=== PATIENT | female | born 2000 | race Hispanic/Latino ===

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

== ENCOUNTER 2022-12-07 13:30 | Emergency (ER) | payer OTHER ==
[2022-12-07] MEDS ORDERED: Lactated Ringer's 1,000 ML ONE (14:03)
[2022-12-07 14:36] LABS: Bilirubin Negative (Negative); Blood, Urine Negative (Negative); Clarity Clear (Clear); Glucose, Urine (Dipstick) Negative (Negative); Ketone, Urine Negative (Negative); Leukocyte Trace (Negative); Nitrite Negative (Negative); Protein, Urine (Dipstick) Negative (Neg-Trace); Urobilinogen 0.2 mg/dL (Less than 2)
[2022-12-07 14:38] LABS: #Basophils 0.1 thou/uL (0.0-0.2); #Eosinphils 0.1 thou/uL (0.0-0.7); #Lymphocytes 1.9 thou/uL (1.20-3.40); #Monocytes 0.6 thou/uL (0.11-0.59); #Neutrophils 7.8 thou/uL (1.40-6.50); %Basophils 0.7 % (0.0-1.0); %Eosinophils 0.8 % (0.0-10.0); %Lymphocytes 18.1 % (28.0-48.0); %Monocytes 5.8 % (0.0-4.0); %Neutrophils 74.6 % (31.0-61.0); Hematocrit 40.2 % (36.0-47.0); Hemoglobin 13.6 g/dL (12.0-16.0); Mean Corpuscular HGB CONC 33.8 g/dL (32.0-36.0); Mean Corpuscular Hemoglobin 32.3 pg (25.0-35.0); Mean Corpuscular Volume 95.5 fl (78.0-98.0); Mean Platelet Volume 9.5 fL (7.4-10.4); Platelet Count 263 10x3/uL (130-400); RBC Distribution Width 11.8 % (11.5-14.5); Red Blood Cell (RBC) Count 4.21 mill/uL (4.00-5.20); White Blood Cell (WBC) Count 10.4 10x3/uL (4.8-10.8)
[2022-12-07 14:39] LABS: CAUTI Indications for Culture Pelvic or flank pain
[2022-12-07 14:41] LABS: Bacteria/HPF 2+ HPF (None Seen); RBC/HPF 0-3 HPF (0-3)
[2022-12-07 14:42] LABS: Urine Culture Reflex No No
[2022-12-07 14:52] LABS: ALT (SGPT) 16 U/L (8-55); AST (SGOT) 16 U/L (5-34); Albumin 3.6 g/dL (3.5-5.0); Alkaline Phosphatase 131 U/L (40-100); Anion Gap 15 mmol/L (10-20); BUN (Urea Nitrogen) 5 mg/dL (7.0-18.7); Bilirubin, Total 0.2 mg/dL (0.2-1.2); CK (CPK) 32 U/L (29-168); Calc. Creatinine Clearance 0 mL/min (70-130); Calcium 9.3 mg/dL (7.8-10.44); Carbon Dioxide 19 mmol/L (22-29); Chloride 107 mmol/L (98-107); Estimated GFR 134; Globulin 3.3 g/dL (2.4-3.5); Glucose 95 mg/dL (70-105); Lipase 66 U/L (8-78); Magnesium 1.9 mg/dL (1.7-2.2); Potassium 3.9 mmol/L (3.5-5.1); Protein, Total 6.9 g/dL (6.0-8.3); Sodium 137 mmol/L (136-145)
== END 2022-12-07 15:12 | disposition home or self-care (01) ==
LOC: MADERS 13:30
DX: O23.92 Unspecified genitourinary tract infection in pregnancy, second trimester (principal); R82.71 Bacteriuria; O99.891 Other specified diseases and conditions complicating pregnancy; E86.0 Dehydration; R19.7 Diarrhea, unspecified; R11.0 Nausea; O99.512 Diseases of the respiratory system complicating pregnancy, second trimester; J45.909 Unspecified asthma, uncomplicated; Z3A.27 27 weeks gestation of pregnancy; Z79.899 Other long term (current) drug therapy
CPT/HCPCS: 80053; 81001; 82550; 83690; 83735; 85025; 87086; 93005; 94760; 96360; J7120

== ENCOUNTER 2023-03-22 17:38 | Emergency (ER) | payer OTHER ==
[2023-03-22 18:12] LABS: Bilirubin Negative (Negative); Blood, Urine Small (Negative); Glucose, Urine (Dipstick) Negative (Negative); Ketone, Urine 15 mg/dL (Negative); Leukocyte Moderate (Negative); Nitrite Negative (Negative); Protein, Urine (Dipstick) 30 mg/dL (Neg-Trace); Specific Gravity, Urine 1.025 (1.005-1.030)
[2023-03-22 18:15] LABS: Clarity Cloudy (Clear); Pregnancy Test - Urine (BHCG) Negative (Negative)
[2023-03-22 18:16] LABS: Pregu Control Background? CLEAR/WHITE (CLR/WHITE); Pregu Control Bar Appear? YES (CONTROL BAR); Specific Gravity 1.025 (1.002-1.036)
[2023-03-22 18:19] LABS: Bacteria/HPF Rare-Few HPF (None Seen); CAUTI Indications for Culture Fever or rigors; Mucous/LPF 1+ LPF (<2+); RBC/HPF 0-3 HPF (0-3); WBC/HPF 21-50 HPF (0-3)
[2023-03-22 18:20] LABS: Urine Culture Reflex Yes Yes
[2023-03-22] MEDS ORDERED: cefTRIAXone (ROCEPHIN) 1 GM VIAL ONE (18:24)
[2023-03-22] MEDS ORDERED: Lidocaine 1% PF 5 ML VIAL ONE (18:24)
== END 2023-03-22 18:45 | disposition home or self-care (01) ==
LOC: MADERS 17:38
DX: N39.0 Urinary tract infection, site not specified (principal); J02.9 Acute pharyngitis, unspecified
CPT/HCPCS: 81001; 81025; 87086; 87430; 96372; 99283; J0696